=== PATIENT | female | born 1950 | race Hispanic/Latino ===

== ENCOUNTER → 2017-04-06 | Outpatient (CLI) | payer OTHER ==
[~2017-04-06] MED LIST: IOPAMIDOL-370 75 ML VIAL IV ONE
== END | disposition home or self-care (01) ==
LOC: OIH 10:00
PROVIDERS: ATTEND Family Medicine
DX: R79.89 Other specified abnormal findings of blood chemistry (principal)
CPT/HCPCS: 74170; Q9967

== ENCOUNTER 2023-08-03 10:08 | Emergency (ER) | payer OTHER ==
[~2023-08-03] VITALS: Ht 152.4 cm; Wt 77.1 kg
[2023-08-03] MEDS: ORPHENADRINE CITRATE 30 MG/ML ML IM ONE (10:44)
[2023-08-03] MEDS: TRIAMCINOLONE ACETONIDE 40 MG/ML 1ML VIAL IM ONE (10:44)
[2023-08-03] MEDS ORDERED: PRED10TA23 PO (16:34)
[2023-08-03 16:45] VITALS: BP 51/67; PULSE 61; RESP 18; O2SAT 97
== END 2023-08-03 16:46 | disposition home or self-care (01) ==
LOC: EDH 10:08
DX: M54.32 Sciatica, left side (principal); E11.9 Type 2 diabetes mellitus without complications; E78.00 Pure hypercholesterolemia, unspecified; Z98.890 Other specified postprocedural states
CPT/HCPCS: 99285; 72131; 72100; 96372 ×2; J3301; J2360

== ENCOUNTER 2023-10-18 22:32 | Emergency (ER) | payer OTHER ==
[~2023-10-18] VITALS: Ht 152.4 cm; Wt 78.0 kg
[~2023-10-18 22:32] MED LIST changes: -IOPAMIDOL-370 75 ML VIAL IV ONE; +PRED10TA23 PO
[2023-10-18 23:16] LABS: RAPID GROUP A STREP negative (NEGATIVE)
[2023-10-18 23:19] LABS: INFLUENZA TYPE A Negative For Type A (NEGATIVE); INFLUENZA TYPE B Negative For Type B (NEGATIVE); SARS-CoV-2, RNA, NAAT POSITIVE SARS CoV-2 (NEGATIVE)
[2023-10-18] MEDS ORDERED: MOLN200C PO (23:39)
[2023-10-18] MEDS ORDERED: ALBUHFA IH (23:39)
[2023-10-18] MEDS ORDERED: BENZ-39 PO (23:39)
[2023-10-18] MEDS: ACETAMINOPHEN 500 MG TABLET PO ONE (23:41)
[2023-10-18 23:45] VITALS: BP 128/60; PULSE 92; RESP 20; O2SAT 97
== END 2023-10-18 23:49 | disposition home or self-care (01) ==
LOC: EDH 22:32
DX: U07.1 COVID-19 (principal); E11.9 Type 2 diabetes mellitus without complications; E78.00 Pure hypercholesterolemia, unspecified; I10 Essential (primary) hypertension; Z79.899 Other long term (current) drug therapy; Z90.89 Acquired absence of other organs; Z98.890 Other specified postprocedural states
CPT/HCPCS: 87635; 87804; 87880